=== PATIENT | female | born 1955 | race Caucasian/White ===

== ENCOUNTER → 2016-03-23 | Outpatient (CLI) | payer OTHER ==
--- NOTE | 2016-03-24 10:29 | US ---
EXAMINATION TYPE: US transvaginal DATE OF EXAM: 03/23/2016 4:30 PM COMPARISON: NONE CLINICAL HISTORY: R10.2 Pelvic pain. TECHNIQUE: Transvaginal (TV) Date of LMP: Post menapausal EXAM MEASUREMENTS: Uterus: 4.9 x 2.3 x 3.6 cm Endometrial Stripe: 0.3 cm Right Ovary: not visualized Left Ovary: 1.3 x 1.0 x 0.9cm TECHNOLOGIST IMPRESSION: wnl 1. Uterus: Anteverted 2. Endometrium: wnl 3. Right Ovary: not visualized, atrophy/peristalsing bowel 4. Left Ovary: small cystic structure measuring 0.7 x0.5 cm 5. Bilateral Adnexa: wnl 6. Posterior cul-de-sac: wnl IMPRESSION: 1. Minimal fluid within the endometrial canal.
== END | disposition home or self-care (01) ==
LOC: RADUSWWP 16:07
PROVIDERS: ATTEND Internal Medicine Geriatric Medicine
DX: N83.202 Unspecified ovarian cyst, left side (principal); N85.4 Malposition of uterus
CPT/HCPCS: 76830

== ENCOUNTER → 2020-02-22 | Outpatient (CLI) | payer BC, MEDICARE ==
--- NOTE | 2020-02-22 10:36 | BD ---
EXAMINATION TYPE: Axial Bone Density DATE OF EXAM: 02/22/2020 COMPARISON: NONE CLINICAL HISTORY: Height: 66 Weight: 166.0 FRAX RISK QUESTIONS: Alcohol (3 or more units per day): no Family History (Parent hip fracture): no Glucocorticoids (More than 3mos): no (Ex: prednisone, prednisolone, methylprednisolone, dexamethasone, and hydrocortisone). History of Fracture in Adulthood: no Secondary Osteoporosis: 1. Type 1 Diabetes: no 2. Hyperthyroidism: no 3. Menopause before 45: no 4. Malnutrition: no 5. Chronic liver disease: no Rheumatoid Arthritis: no Current Tobacco Use: yes RISK FACTORS HISTORY OF: Family History of Osteoporosis: yes Active: yes Diet low in dairy products/other sources of calcium: no Postmenopausal woman: age 53 Lost more than 2 inches in height since high school: no MEDICATIONS: none Additional History: EXAM MEASUREMENTS: Bone mineral densitometry was performed using the [employer] System. Bone mineral density as measured about the Lumbar spine is: ----- L1-L4(G/cm2): 1.000 T Score Values are as follows: ----- L2: -0.4 ----- L3: -1.9 ----- L4: -2.6 ----- L1-L4: -1.5 Bone mineral density : baseline Bone mineral density about the R hip (g/cm2): 0.754 Bone mineral density about the L hip (g/cm2): 0.777 T Score values are as follows: -----R Neck: -2.0 -----L Neck: -1.9 -----R Total: -1.9 -----L Total: -1.8 Bone mineral density : baseline IMPRESSION: Osteopenia NOTE: T-SCORE=SD OF THE YOUNG ADULT MEAN.
--- NOTE | 2020-02-23 12:34 | MM ---
Reason for exam: screening (asymptomatic). Last mammogram was performed 5 years and 2 months ago. History: Patient is postmenopausal. Excisional biopsy of the left breast. Physical Findings: A clinical breast exam by your physician is recommended on an annual basis and results should be correlated with mammographic findings. MG 3D Screening Mammo W/Cad Bilateral CC and MLO view(s) were taken. Prior study comparison: December 10, 2014, bilateral MG screening mammo w CAD. October 05, 2013, mammogram, performed at [facility]. There are scattered fibroglandular densities. There is no discrete abnormality. No significant changes when compared with prior studies. ASSESSMENT: Negative, BI-RAD 1 RECOMMENDATION: Routine screening mammogram of both breasts in 1 year.
== END | disposition home or self-care (01) ==
LOC: RADMAMWWP 07:49
PROVIDERS: ATTEND Internal Medicine Geriatric Medicine
DX: Z12.31 Encounter for screening mammogram for malignant neoplasm of breast (principal); M85.80 Other specified disorders of bone density and structure, unspecified site; M81.0 Age-related osteoporosis without current pathological fracture
CPT/HCPCS: 77063; 77067; 77080

== ENCOUNTER → 2021-06-26 | Outpatient (CLI) | payer MEDICARE ==
--- NOTE | 2021-06-26 15:36 | XR ---
EXAMINATION TYPE: XR thoracic spine complete DATE OF EXAM: 06/26/2021 COMPARISON: None HISTORY: Tarsalgia TECHNIQUE: 3 view thoracic spine FINDINGS: There are 12 thoracic type vertebral bodies. The pedicles are intact. There is some mild di ffuse disc space narrowing within the mid thoracic spine. Mild compression deformity may be present i n the region of T5 of indeterminate age. Findings are be further evaluated with thoracic CT. IMPRESSION: 1. Some mild endplate change may be present in the region of T5. Consider CT for additional evaluati on. Correlate with the location pain.
== END | disposition home or self-care (01) ==
LOC: CANPRECLI → RADXRMAIN 08:21
PROVIDERS: ATTEND Internal Medicine Geriatric Medicine
DX: M54.9 Dorsalgia, unspecified (principal)
CPT/HCPCS: 72072

== ENCOUNTER → 2021-07-06 | Outpatient (CLI) | payer MEDICARE ==
--- NOTE | 2021-07-06 08:15 | CT ---
EXAMINATION TYPE: CT thoracic spine wo con DATE OF EXAM: 07/06/2021 COMPARISON: Plain film 06/26/2021 HISTORY: Wedge compression fx thoracic vertebrae CT DLP: [address] of the thoracic spine was performed. Bone and soft tissue window settings were obtained . There is mild loss of height involving the T5 vertebral body at its superior endplate with small para spinal hematoma noted compatible with the recent compression fracture. No additional fractures are se en. There is moderate to severe multilevel degenerative disc space narrowing and spondylosis. Accentu ated upper thoracic kyphosis noted. No evidence of paraspinal mass. No bony destructive process. Ante rior spondylosis. IMPRESSION: 1. There is a recent superior endplate compression fracture of T5 with small paraspinal hematoma. No additional fracture seen.
== END | disposition home or self-care (01) ==
LOC: RADCTMAIN 07:11
PROVIDERS: ATTEND Internal Medicine Geriatric Medicine
DX: S22.058A Other fracture of T5-T6 vertebra, initial encounter for closed fracture (principal); X58.XXXA Exposure to other specified factors, initial encounter
CPT/HCPCS: 72128

== ENCOUNTER → 2022-08-29 | Outpatient (CLI) | payer MEDICARE ==
--- NOTE | 2022-08-29 09:02 | BD ---
EXAMINATION TYPE: Axial Bone Density DATE OF EXAM: 08/29/2022 CLINICAL HISTORY: 67 years old Female. ICD-10 CODE: M81.0AGE-RELATED OSTEOPOROSIS W/O CURRENT P Height: 63.4 Weight: 165 FRAX RISK QUESTIONS: Glucocorticoids (More than 3mos): yes (Ex: prednisone, prednisolone, methylprednisolone, dexamethasone, and hydrocortisone). Current Tobacco Use: yes RISK FACTORS HISTORY OF: Family History of Osteoporosis: mother, no fx Postmenopausal woman: yes, at 53 Hyperparathyroidism: no Adrenal Insufficiency: no MEDICATIONS: Prednisone or other steroids: yes, copd, and for illness, for about 10 yrs Additional Medications: Citalopram, xanax, cholesterol meds, vit d and calcium, Additional History: anxiety, cholesterol, EXAM MEASUREMENTS: Bone mineral densitometry was performed using the Hum System. Bone mineral density as measured about the Lumbar spine is: ----- L1-L4(G/cm2): 1.004 T Score Values are as follows: ----- L1: -0.6 ----- L2: -0.2 ----- L3: -1.6 ----- L4: -3.0 ----- L1-L4: -1.5 Z Score Values are as follows: ----- L1: 0.8 ----- L2: 1.2 ----- L3: -0.3 ----- L4: -1.6 ----- L1-L4: -0.1 Bone mineral density has: Increased 0.4% since study of: 02.22.2020 Bone mineral density about the R hip (g/cm2): 0.750 Bone mineral density about the L hip (g/cm2): 0.745 T Score values are as follows: -----R Neck: -2.4 -----L Neck: -2.4 -----R Total: -2.0 -----L Total: -2.1 Z Score values are as follows: -----R Neck: -1.0 -----L Neck: -1.0 -----R Total: -0.8 -----L Total: -0.9 Bone mineral density has: Decreased -3.2% since study of: 02.22.2020 FRAX%s: The graph provided illustrates a 24.0% chance for a major osteoporotic fx and a 9.9% chance f or the hips probability for fx in 10 years time. IMPRESSION: Osteopenia (T Score between -2.5 and -1). There is slightly increased risk of fracture and the patient may be considered for treatment. Re-Screen 2-5 years. NOTE: T-SCORE=SD OF THE YOUNG ADULT MEAN.
--- NOTE | 2022-08-29 09:08 | MM ---
Reason for Exam: Screening (asymptomatic). Last mammogram was performed 2 year(s) and 6 month(s) ago. Patient History: Menarche at age 10. First Full-Term at age 16. Postmenopausal. Patient has history of breast feeding. Excisional Biopsy on the Left side. Mother had ovarian cancer at or over age 50. Sister had breast cancer at or over age 50. Risk Values: Ro 5 year model risk: 3.8%. NCI Lifetime model risk: 11.3%. Prior Study Comparison: 11/27/1999 Bilateral Screening Mammogram, [facility]. 12/06/1999 Left Special View Mammogram, [facility]. 10/05/2013 Screening Mammogram, [facility]. 12/10/2014 Bilateral Screening Mammogram, [facility]. 02/22/2020 Bilateral Screening Mammogram, [facility]. Tissue Density: There are scattered fibroglandular densities. Findings: Analyzed By CAD. There is no suspicious group of microcalcifications or new suspicious mass in either breast. Overall Assessment: Negative, BI-RAD 1 Management: Screening Mammogram of both breasts in [address] [facility] will attempt to contact patient to return for supplemental views and ultrasound if indicated. Patient should continue monthly self-breast exams. A clinical breast exam by your physician is recommended on an annual basis. This exam should not preclude additional follow-up of suspicious palpable abnormalities. Note on Ro scores and lifetime risk: 1. A Ro score greater than 3% is considered moderate risk. If this is the case, consider specialist referral to assess eligibility for a risk reducing agent. 2. If overall lifetime risk for the development of breast cancer is 20% or higher, the patient may qualify for future screening with alternating mammogram and breast MRI. Electronically signed and approved by: Luis Rodgers DO
== END | disposition home or self-care (01) ==
LOC: RADMAMWWP 07:25
PROVIDERS: ATTEND Internal Medicine Geriatric Medicine
DX: Z12.31 Encounter for screening mammogram for malignant neoplasm of breast (principal); M81.0 Age-related osteoporosis without current pathological fracture; M85.89 Other specified disorders of bone density and structure, multiple sites; Z78.0 Asymptomatic menopausal state; Z80.3 Family history of malignant neoplasm of breast
CPT/HCPCS: 77063; 77067; 77080

== ENCOUNTER → 2023-07-02 | Outpatient (CLI) | payer MEDICARE ==
[2023-07-02 12:03] LABS: African American GFR (CKD) 86 (>60 ml/min/1.73 sqM); Blood Urea Nitrogen 10 mg/dL (7-17); Non-African American GFR(CKD) 74 (>60 ml/min/1.73 sqM)
--- NOTE | 2023-07-02 12:12 | XR ---
EXAMINATION TYPE: XR elbow complete LT DATE OF EXAM: 07/02/2023 12:01 PM CLINICAL INDICATION:Female, 68 years old with history of M25.522 pain in left elbow; PHH COMPARISON: None TECHNIQUE: XR elbow complete LT; elbow was examined in AP, lateral, and oblique projections. FINDINGS: No evidence of any acute osseous pathology, joint dislocation, or soft tissue swelling is n oted. No evidence of joint effusion is present. IMPRESSION: No evidence of acute fracture.
--- NOTE | 2023-07-02 13:27 | CT ---
EXAMINATION TYPE: CT abdomen pelvis w con CT DLP: 532.9 mGycm, Automated exposure control for dose reduction was used. DATE OF EXAM: 07/02/2023 1:11 PM COMPARISON: None CLINICAL INDICATION:Female, 68 years old with history of R10.9 ABDOMINAL PAIN; abdominal pain, bloati ng, diarrhea daily x5 months TECHNIQUE: Axial CT abdomen pelvis w con;Sagittal and coronal reformats were created on a separate w orkstation. Contrast used:100 mL of Isovue 300 with IV Contrast, (none if empty) Oral contrast used: with Oral Contrast (none if empty) FINDINGS: LOWER CHEST: Unremarkable ABDOMEN LIVER: Unremarkable GALLBLADDER AND BILE DUCTS: Unremarkable. PANCREAS: Unremarkable. SPLEEN: Unremarkable. ADRENAL GLANDS: Unremarkable. KIDNEYS AND URETERS: No evidence of hydronephrosis or renal calculus. The ureters are unremarkable. PELVIS BLADDER: Unremarkable REPRODUCTIVE: Unremarkable. ABDOMEN & PELVIS STOMACH AND BOWEL: No evidence of bowel obstruction. Oral contrast extends to the superior descending colon. No evidence for bowel wall thickening. The anterior descending colon and sigmoid colon and re ctum are nondistended. PERITONEUM/RETROPERITONEUM: No evidence of pneumoperitoneum or free fluid. VASCULATURE: Mild atherosclerotic calcifications are present throughout the abdominal aorta and its b ranches. No evidence of aortic aneurysm. MUSCULOSKELETAL: No acute osseous abnormalities. Mild disc degeneration changes are present throughou t the thoracolumbar spine. LYMPH NODES: No gross evidence for lymphadenopathy. SOFT TISSUE/ABDOMINAL WALL: Unremarkable IMPRESSION: No evidence for acute abdominal process. No evidence for bowel obstruction.
== END | disposition home or self-care (01) ==
LOC: RADCTMAIN 11:05
PROVIDERS: ATTEND Internal Medicine Geriatric Medicine
DX: R10.9 Unspecified abdominal pain (principal); M25.522 Pain in left elbow
CPT/HCPCS: 82565; 84520; 73080; 74177; 36415; Q9967

== ENCOUNTER → 2023-08-06 | Outpatient (CLI) | payer MEDICARE ==
--- NOTE | 2023-08-16 23:57 | XR ---
EXAMINATION TYPE: XR ribs 2 views LT, XR thoracic spine 3 views complete, XR lumbar spine 3V DATE OF EXAM: 08/06/2023 COMPARISON: CT chest 05/02/2022 HISTORY: 68-year-old female and 5 4.9, fall one year ago with fractured T-spine, follow-up in 2 weeks ago, left lower posterior rib pain. FINDINGS: Left RIBS: Age-indeterminate fracture left posterolateral sixth rib. No additional displaced left rib fracture i s seen. Thoracic spine: Osteopenia. 12 rib-bearing thoracic vertebral bodies. All pedicles are visualized. Anterior compressi on deformity of a midthoracic vertebral body, new from 05/02/2022. Mild to moderate degenerative disc d isease scattered throughout. Alignment is maintained. Lumbar spine: 5 lumbar type vertebral bodies. Osteopenia. Hypertrophic facet arthropathy throughout with straighten ing of the normal lumbar lordosis. Mild multilevel degenerative disc disease. Vertebral body heights are preserved. Minimal superior endplate deformity L2 vertebral body which has a chronic appearance o n the patient's 07/02/2023 CT. Vertebral body heights otherwise maintained. IMPRESSION: 1. Left RIBS: Age-indeterminate, possibly acute mildly displaced left posterolateral sixth rib fractu re. 2. Thoracic spine: Anterior compression deformity of a midthoracic vertebral body, new from 05/03/2023 but still age indeterminate. Clinically correlate. Approximately 40% anterior height loss. Mild to mo derate degenerative disc disease throughout the thoracic spine and accentuated mid thoracic kyphosis. 3. Lumbar spine: Old endplate deformity of L2. Straightening of the normal lumbar lordosis. Hypertrop hic facet arthropathy throughout with mild degenerative disc disease.
== END | disposition home or self-care (01) ==
LOC: RADXRMAIN 13:59
PROVIDERS: ATTEND Internal Medicine Geriatric Medicine
DX: M47.816 Spondylosis without myelopathy or radiculopathy, lumbar region (principal); M40.294 Other kyphosis, thoracic region; M51.35 Other intervertebral disc degeneration, thoracolumbar region; S23.41XA Sprain of ribs, initial encounter; M40.46 Postural lordosis, lumbar region; M43.8X6 Other specified deforming dorsopathies, lumbar region; W19.XXXA Unspecified fall, initial encounter
CPT/HCPCS: 72072; 72100

== ENCOUNTER → 2024-04-03 | Outpatient (CLI) | payer MEDICARE ==
--- NOTE | 2024-04-03 15:36 | CTL ---
EXAMINATION TYPE: CT Low Dose Lung DATE OF EXAM: 04/03/2024 12:19 PM COMPARISON: 05/02/2022 CLINICAL INDICATION: Female, 69 years old with history of Z12.2 ENCNTR SCREEN FO F17.210 NICOTINE DEP ENDENCE, Personal hx nicotine dependence, current smoker, 1 ppd x 46 years, c/o SOB, cough. TECHNIQUE: Low dose computed tomography scan was performed through the chest at 1 mm thick sections a nd reconstructed images in multiple planes at 1 mm and [address] DLP: 68.7 mGycm, CT CTDI: 2.1 mGy, Automated exposure control for dose reduction was used. CT DIAGNOSTIC QUALITY: Satisfactory FINDINGS: The heart is normal size without pericardial effusion. Aorta normal caliber with conventional vessel branching anatomy. Borderline caliber main right and left pulmonary arteries up to 2.5 cm may reflect underlying pulmona ry hypertension. Swbe-pf-xceyrqkh diffuse bronchial wall thickening. Biapical pleural-parenchymal scarring. Mild emphy sematous change. Strandy scarring or atelectasis at the lower lungs. The interval or multifocal patchy groundglass changes in the upper lungs. 4 mm right mid lung pulmonary nodule is unchanged. No suspicious greater than 4 mm pulmonary nodule i s identified. Visualized upper abdomen shows no gross abnormality. Bones: Accentuated upper to mid thoracic kyphosis. Mild anterior compression deformity T5 is unchange d. Moderate degenerative disc disease throughout the thoracic spine. IMPRESSION: 1. Lung RADS 2, benign. No new suspicious pulmonary nodules. 2. COPD with mild emphysema and interval development of multifocal patchy groundglass in the upper an d midlungs. Correlate for etiology such as hypersensitivity pneumonitis, LIAISON ENGINEER, or atypical/ COVID pneu monia. CT LUNG RAD AND CT CHEST RECOMMENDATION: Lung-Rad 2 Benign Appearance or Behavior: Continue annual sc reening with LDCT in 12 months. S Modifier (other clinically significant findings): S, further clinical management of the groundglass infiltrates mentioned above. [facility], , 04/03/2024 3:34 PM
== END | disposition home or self-care (01) ==
LOC: RADCTMAIN 11:44
PROVIDERS: ATTEND Internal Medicine Geriatric Medicine
DX: Z12.2 Encounter for screening for malignant neoplasm of respiratory organs (principal); J43.9 Emphysema, unspecified; J44.9 Chronic obstructive pulmonary disease, unspecified; F17.210 Nicotine dependence, cigarettes, uncomplicated; J67.9 Hypersensitivity pneumonitis due to unspecified organic dust
CPT/HCPCS: 71271

== ENCOUNTER → 2024-05-25 | Outpatient (CLI) | payer MEDICARE ==
[2024-05-25 10:54] VITALS: BP 116/63; PULSE 80; RESP 15; TEMP 96.9
--- NOTE | 2024-05-25 12:27 | XR ---
EXAMINATION TYPE: XR thoraco lumbar junction DATE OF EXAM: 05/25/2024 11:48 AM COMPARISON: 08/06/2023 CLINICAL INDICATION: Female, 69 years old with history of M54.14 RADICULOPATHY, THORACIC REGION; PHH, pain TECHNIQUE: XR thoraco lumbar junction - Frontal, lateral and coned in L5-S1 lateral views of the spin e. FINDINGS: No evidence of any acute osseous pathology. No evidence of loss of vertebral body height i s seen. There is normal alignment of the lumbar vertebral bodies. Scattered disc space narrowing. Mul tilevel marginal osteophyte formation throughout the visualized spine. There is facet joint arthropat hy throughout the spine. Scattered at least mild neural foraminal stenosis. IMPRESSION: 1. No acute fracture. 2. Moderate multilevel disc degeneration. [facility], , 05/25/2024 12:25 PM
--- NOTE | 2024-05-25 14:46 | P.PAINPG ---
PQRS Measure Charge Sheet Comment: HISTORY OF PRESENT ILLNESS: A 69 yr old female w at side as a referral from [facility] presents today w severe and chronic mid to lower back pain secondary to T3 compression fracture, radiculopathy, spondylosis and facet arthropathy without myelopathy for evaluation. Pt states pain level is provoked at 6 /10 in intensity, constant, localized in the mid and lower spine, predominantly axial, dull in character without shooting pain. Pain is provoked by bending, lifting. Pain is alleviated by heat, ice, medications, repositioning and rest . Oswestry axial pain score at 22. PMH: OA, Hyperlipidemia, MDD PSH: Hernia Repair SH: Daily tobacco use, Hx ETOH abuse (2023), Fall w +opiates, benzodiazepine, THC (04/28) FH: Son- OD, . All: See list Meds: See list incl Tylenol #3 #60, Robaxin, Neurontin. Urged pt to keep narcotic agreement in place and adhere to policy. REVIEW OF ORGAN SYSTEMS: CONSTITUTIONAL: No fevers or chills. No recent weight loss. NEUROLOGICAL: + numbness and tingling along the distal extremities. No seizure disorders or headaches. MUSCULOSKELETAL: + pain PSYCHIATRIC: Denies current depression or suicidal thoughts. Physical Examinations : Constitutional : Cooperative , not in acute distress . Neurologic : Cranial nerve II to XII intact. No focal neurological deficits. Psychiatric : alert & oriented x 3. Matching mood & appropriate affect. Judgment & insight intact. Musculoskeletal : Cervical Spine Motor strength in the deltoid and biceps: Normal right side. Normal Left side Motor strength biceps and the wrist extensors: Normal right side . Normal left side Motor strength in the triceps muscle: Normal right side. Normal left side Deep tendon reflexes: Normal at the biceps. Normal at Brachioradialis. Normal at triceps Vertebral body tenderness to deep palpation over Cervical facet loading test: positive bilaterally Spurling test: positive bilaterally Neck distraction test: positive bilaterally Bridger sign: positive bilaterally Lumbar spine Motor strength lower extremities ,thigh and legs 5/5 Right side , 5/5 Left side Deep tendon reflexes : Normal Knee Jerk. Normal Ankle Jerk Vertebral body tenderness over Delcid Test positive Lumbar facet Loading Test: positive Right / positive Left Range of motion of the lumbar spine Flexion 30 degrees, extension 10 degrees Straight Leg Raise test: Left/ Right positive at degrees Tyler test: positive right / positive left. Severe tenderness over the Sacroiliac joint on the Right / Left sides Gaenslen test: positive bilaterally Seated flexion test: positive bilaterally. Sacral spine : Severe tenderness over the Sacroiliac joint: right side / left side Range of motion: Flexion of the lumbar spine <60 degrees Range of motion: Extension of the lumbar spine <20 degrees Gaenslen's Test positive Tyler test: positive right side / left side Thigh Thrust Test Sacral Thrust Test Imaging: CT non contrast brain / cervical spine from 04/09/24 reviewed X ray thoracic spine from 08/06/23 reviewed Assessment/ Plan : T3 compression fracture, Lumbar radiculopathy Recommendation of PT x 6 wks, x ray thoracolumbar spine M54.14, M54.16. All questions answered. I have spent greater than 30 minutes on patient care today. Dr Barclay was available by phone for the evaluation of this patient. The time was used to re view the medical records including relevant urine studies and Prescription history (MAPs), review of the available imaging, evaluation and examination of the patient, coordination of care with the medical staff and if applicable referring physicians, as well as creation of the medical record Home Medications: Ambulatory Orders ALPRAZolam [Xanax] 0.25 mg PO DAILY PRN 04/10/24 ALPRAZolam [Xanax] 0.25 mg PO HS 04/10/24 Acetaminophen Tab [Tylenol] 650 mg PO Q6HR PRN tab 04/10/24 Albuterol Inhaler [Ventolin Hfa Inhaler] 2 puff INHALATION RT-Q6H PRN 04/10/24 Baclofen [Lioresal] 20 mg PO BID PRN 04/10/24 Citalopram Hydrobromide [CeleXA] 20 mg PO DAILY 04/10/24 Gabapentin [Neurontin] 100 mg PO BID PRN 04/10/24 HYDROcodone/APAP 5-325MG [Wallace 5-325] 1 tab PO Q8H PRN 04/10/24 Meloxicam [Mobic] 15 mg PO DAILY PRN 04/10/24 Rosuvastatin Calcium [Crestor] 5 mg PO DAILY 04/10/24 Ubidecarenone [Co Q-10] 400 mg PO DAILY 04/10/24 traZODone HCL [Desyrel] 50 mg PO HS 04/10/24 Controlled Substance Measures - Controlled Substance Measures Is patient prescribed a controlled substance at discharge?: No
== END ==
LOC: PNWHC3 10:02
PROVIDERS: ATTEND Specialist
DX: M48.54XA Collapsed vertebra, not elsewhere classified, thoracic region, initial encounter for fracture (principal); M51.16 Intervertebral disc disorders with radiculopathy, lumbar region; M54.9 Dorsalgia, unspecified
CPT/HCPCS: 72080; 99212

== ENCOUNTER → 2024-05-30 | Outpatient (CLI) | payer MEDICARE ==
--- NOTE | 2024-05-30 10:26 | MR ---
EXAMINATION TYPE: MR raven/lsmohini wo con DATE OF EXAM: 05/30/2024 10:10 AM COMPARISON: None. CLINICAL INDICATION: Female, 69 years old with history of M54.14 RADICULOPATHY, THORACIC REGION, M54. 16 RADI, Mid back pain, hx fracture. IV Contrast: cc (None if empty) TECHNIQUE: Multiplanar, multisequence imaging of the lumbar spine is performed without IV contrast. Findings: Thoracic spine MRI: There are mild nonacute compression fractures of T3 and T5. There is a small to moderate central disc protrusion at the T8-9 disc resulting in moderate mass effe ct on the ventral aspect of the thecal sac. It abuts the anterior aspect of the thoracic cord. There is no thoracic spinal stenosis. Thoracic cord is normal in size and signal intensity. The paraspinal soft tissues are unremarkable. MRI of lumbar spine: Lumbar vertebral segments are normal in alignment. There is a mild chronic compression fracture of L2 with no retropulsion. There is mild degenerative disease throughout the lumbar spine were there is mild loss of signal inte nsity and circumferential disc bulge. There is also mild disc space narrowing at the L4-5 and L5-S1 l evels. There are no lumbar disc herniations. There is moderate facet arthropathy at the L5-S1 level and mild facet arthropathy throughout the joyce alonzo of the lumbar spine. Secondary to mild thickening of ligamentum flavum and facet arthropathy as well as circumferential di sc bulge, there is mild spinal stenosis at the L2-3, L3-4, L4-5 and L5-S1 levels. There is mild to moderate neural foraminal stenosis at the L5-S1 level bilaterally, right greater juan carlos n left. IMPRESSION: 1. Mild chronic compression fractures of T3, T5 and L2. 2. Mild to moderate central disc protrusion of the T8-9 disc resulting in moderate mass effect on the ventral aspect thecal sac but no thoracic spinal stenosis or thoracic cord abnormality. 3. Mild multilevel degenerative disease in the lumbar spine without disc herniation. 4. Mild spinal stenosis at multiple levels of lumbar spine described above. 5. Moderate facet arthrop athy at the L5-S1 level and mild facet arthropathy throughout the remainder of the lumbar spine. 6. Mild to moderate neuroforaminal stenosis at the L5-S1 level bilaterally, right greater than left. [facility], , 05/30/2024 10:24 AM
== END | disposition home or self-care (01) ==
LOC: RADMRIMAIN 08:54
PROVIDERS: ATTEND Specialist
DX: M48.54XA Collapsed vertebra, not elsewhere classified, thoracic region, initial encounter for fracture (principal); M48.56XA Collapsed vertebra, not elsewhere classified, lumbar region, initial encounter for fracture; M48.061 Spinal stenosis, lumbar region without neurogenic claudication; M99.73 Connective tissue and disc stenosis of intervertebral foramina of lumbar region; M51.16 Intervertebral disc disorders with radiculopathy, lumbar region; M51.14 Intervertebral disc disorders with radiculopathy, thoracic region
CPT/HCPCS: 72146; 72148

== ENCOUNTER → 2024-06-09 | Outpatient (CLI) | payer MEDICARE ==
[2024-06-09 15:22] LABS: HCT 39.8 % (37.2-46.3); HGB 12.7 g/dL (12.0-15.0); MCH 33.7 pg (27.0-32.0); MCHC 31.9 g/dL (32.0-37.0); MCV 105.6 FL (80.0-97.0); Mean Platelet Volume 10.9 FL (9.5-12.2); NRBC Per 100 WBC 0 X 10*3/uL (0.00-0.01); Platelet Count 247 X 10*3/uL (140-440); RBC 3.77 X 10*6/uL (4.10-5.20); RDW 13.2 % (11.5-14.5); WBC 6.81 X 10*3/uL (4.50-10.00)
[2024-06-09 15:33] LABS: ALT 18 U/L (8-44); AST 20 U/L (13-35); Albumin 4.3 g/dL (3.8-4.9); Albumin/Globulin Ratio 1.65 Ratio (1.60-3.17); Alkaline Phosphatase 91 U/L (41-126); BUN/Creat Ratio 17.75 Ratio (12.00-20.00); Blood Urea Nitrogen 14.2 mg/dL (9.0-27.0); Calcium 9.7 mg/dL (8.7-10.3); Carbon Dioxide 27.2 mmol/L (21.6-31.8); Chloride 102 mmol/L (96-109); Globulin 2.6 g/dL (1.6-3.3); Glucose 88 mg/dL (70-110); Potassium 4.3 mmol/L (3.5-5.5); Sodium 138 mmol/L (135-145); Total Bilirubin <0.2 mg/dL (0.3-1.2); Total Protein 6.9 g/dL (6.2-8.2)
[2024-06-09 16:10] LABS: Basophils # (A) 0.06 X 10*3/uL (0.00-0.10); Basophils % (A) 0.9 %; Eosinophils # (A) 0.19 X 10*3/uL (0.04-0.35); Eosinophils % (A) 2.8 %; Lymphocytes # (A) 2.31 X 10*3/uL (0.90-5.00); Lymphocytes % (A) 33.9 %; Monocytes # (A) 0.51 X 10*3/uL (0.20-1.00); Monocytes % (A) 7.5 %; Neutrophils # (A) 3.73 X 10*3/uL (1.80-7.70); Neutrophils % (A) 54.8 %
== END | disposition home or self-care (01) ==
LOC: LABWHC1 10:42
PROVIDERS: ATTEND Internal Medicine Gastroenterology
DX: K58.0 Irritable bowel syndrome with diarrhea (principal)
CPT/HCPCS: 36415; 80053; 83516; 85025

== ENCOUNTER 2024-07-03 05:50 | Day surgery (SDC) | payer MEDICARE ==
[2024-07-02 11:40] VITALS: BMI 22.2
[2024-07-03 06:27] VITALS: TEMP 98.3
[2024-07-03] MEDS: LACTATED RINGERS 1,000 ML IV SCH (06:29)
[2024-07-03] MEDS: IV FLUID CONTINUATION 1,000 ML IV ONE (06:29)
[2024-07-03] MEDS: LIDOCAINE 1% (10MG/ML) FOR IV START INTRADERMA PRN (06:29)
[2024-07-03] MEDS ORDERED: PROPOFOL 10 MG/ML 20 ML VIAL IV ONE (06:59)
[2024-07-03] MEDS ORDERED: LIDOCAINE 1% INJ 10MG/ML (20 ML MDV) ONE (06:59)
--- NOTE | 2024-07-03 07:23 | P.PCN ---
Date of Procedure: 07/03/24 Procedure(s) Performed: Brief history: Patient is a pleasant 69-year-old white female scheduled for an elective upper endoscopy as well as colonoscopy as a part of evaluation of intermittent episodes of nausea vomiting and diarrhea for the last several years duration. Her symptoms lately have been progressively getting worse. She usually has 4-5 loose watery bowel movements daily. Complaining of diffuse lower abdominal pain. Recent CT of the abdomen pelvis was unremarkable. Procedure performed: Esophagogastroduodenoscopy with biopsy Colonoscopy with biopsy Preoperative diagnosis: Abdominal pain and chronic diarrhea/nausea vomiting Anesthesia: MAC Procedure: After informed consent was obtained from the patient was brought into the endoscopy unit and IV sedation was administered by anesthesia under continuous monitoring. Initially upper endoscopy was done. The Olympus GF 160 video endo scope was inserted inserted into the mouth and esophagus intubated without any difficulty and was gradually advanced into the stomach and duodenum and carefully examined. The bulb and second part of the duodenum appeared normal. Biopsies were done from the duodenum to rule out celiac disease. The scope was then withdrawn into the stomach adequately insufflated with air and upon careful examination the antrum had mild gastritis and biopsies were done from this area. Mucosa body, cardia and fundus appeared normal. The scope was then withdrawn into the esophagus. The GE junction was located at 40 cm to the incisors. It appeared regular with no erythema erosions or ulcerations. Rest of the esophagus appeared normal. Patient tolerated the procedure well. At this time the patient continued to remain sedation. Initial digital rectal examination was normal. Olympus CF 160 video colonoscope was then inserted into the rectum and gradually advanced to the cecum without any difficulty. Careful examination was performed as the scope was gradually being withdrawn. The prep was excellent. The cecum, ascending colon, transverse colon, descending colon, sigmoid colon and rectum appeared normal. Scattered sigmoid diverticulosis. Random biopsies were done from the ascending and descending colon to rule out microscopic/collagenous colitis. Retroflexion was performed in the rectum and no lesions were noted. Patient tolerated the procedure well. Impression: 1. Upper endoscopy revealed mild antral gastritis but no active esophagitis or peptic ulcer disease 2. Colonoscopy revealed scattered sigmoid diverticulosis but no evidence of colorectal neoplasia Recommendations: Findings of this examination were discussed with the patient as well as her family. She was advised to follow-up with the biopsy results. Follow-up in the office in 2 weeks. Recommended repeat screening colonoscopy in 10 years
[2024-07-03 07:44] VITALS: BP 144/81; PULSE 72; RESP 17
== END 2024-07-03 08:14 | disposition home or self-care (01) ==
LOC: ORWHC2ENDO 05:50
PROVIDERS: ATTEND Internal Medicine Gastroenterology
DX: K57.30 Diverticulosis of large intestine without perforation or abscess without bleeding (principal); K58.0 Irritable bowel syndrome with diarrhea; R11.2 Nausea with vomiting, unspecified
CPT/HCPCS: 45380; 43239; J2003; J2704; 88305

== ENCOUNTER → 2024-07-16 | Outpatient (CLI) | payer MEDICARE ==
[2024-07-16 13:30] VITALS: BP 159/75; PULSE 85; RESP 17
--- NOTE | 2024-07-16 16:02 | P.PAINPG ---
Objective - Vital Signs Vital signs: Vital Signs Temp Pulse 85 07/16/24 13:21 Resp 17 07/16/24 13:21 BP 159/75 07/16/24 13:21 Pulse Ox 100 07/16/24 13:21 FiO2 Intake & Output 07/15/24 07/16/24 07/16/24 18:59 06:59 18:59 Weight 63.503 kg PQRS Measure Charge Sheet Mode of Arrival: Ambulatory Comment: HISTORY OF PRESENT ILLNESS: A 69 yr old female presents today w severe and chronic mid to lower back pain secondary to T3 compression fracture, radiculopathy, spondylosis and facet arthropathy without myelopathy for evaluation. Pt states pain level is provoked at 6 /10 in intensity, constant, localized in the lower spine, predominantly axial, throbbing in character without shooting pain. Pain is provoked by bending, lifting. Pain is alleviated by heat, ice, medications, repositioning and rest . Oswestry axial pain score at 22. Interventional procedures include Medications include Hx ETOH abuse (2023), Fall w +opiates, benzodiazepine, THC (04/28). Tylenol #3 #60, Robaxin, Neurontin. Urged pt to keep narcotic agreement in place and adhere to policy. REVIEW OF ORGAN SYSTEMS: CONSTITUTIONAL: No fevers or chills. No recent weight loss. NEUROLOGICAL: + numbness and tingling along the distal extremities. No seizure disorders or headaches. MUSCULOSKELETAL: + pain PSYCHIATRIC: Denies current depression or suicidal thoughts. Physical Examinations : Constitutional : Cooperative , not in acute distress . Neurologic : Cranial nerve II to XII intact. No focal neurological deficits. Psychiatric : alert & oriented x 3. Matching mood & appropriate affect. Judgment & insight intact. Musculoskeletal : Cervical Spine Motor strength in the deltoid and biceps: Normal right side. Normal Left side Motor strength biceps and the wrist extensors: Normal right side . Normal left side Motor strength in the triceps muscle: Normal right side. Normal left side Deep tendon reflexes: Normal at the biceps. Normal at Brachioradialis. Normal at triceps Vertebral body tenderness to deep palpation over Cervical facet loading test: positive bilaterally Spurling test: positive bilaterally Neck distraction test: positive b ilaterally Bridger sign: positive bilaterally Lumbar spine Motor strength lower extremities ,thigh and legs 5/5 Right side , 5/5 Left side Deep tendon reflexes : Normal Knee Jerk. Normal Ankle Jerk Vertebral body tenderness over L3 Delcid Test positive BL L3-L4 Lumbar facet Loading Test: positive Right / positive Left Range of motion of the lumbar spine Flexion 30 degrees, extension 10 degrees Straight Leg Raise test: Left/ Right positive at degrees Tyler test: positive right / positive left. Severe tenderness over the Sacroiliac joint on the Right / Left sides Gaenslen test: positive bilaterally Seated flexion test: positive bilaterally. Sacral spine : Severe tenderness over the Sacroiliac joint: right side / left side Range of motion: Flexion of the lumbar spine <60 degrees Range of motion: Extension of the lumbar spine <20 degrees Gaenslen's Test positive Tyler test: positive right side / left side Thigh Thrust Test Sacral Thrust Test Imaging: CT non contrast brain / cervical spine from 04/09/24 reviewed 05/30/24 reviewed Assessment/ Plan : T3 compression fracture, T8-T9 radiculopathy L2-L5 stenosis Recommendation of GIFTY L3-L4 #1. If ineffective, would need an orthopedic surgery consult for spinal stenosis. Risks, benefits of procedure discussed and pt verbalized understanding. All questions answered. I have spent greater than 30 minutes on patient care today. Dr Barclay was available by phone for the evaluation of this patient. The time was used to review the medical records including relevant urine studies and Prescription history (MAPs), review of the available imaging, evaluation and examination of the patient, coordination of care with the medical staff and if applicable referring physicians, as well as creation of the medical record - Pain Location Back Non-Pharmacological Interventions: Heat, Ice Pharmacological Interventions: Medication, Topical Medication PQRS Narrative: Blood Pressure 159/75 Pain Intensity [Back] 6 Scale Used Numeric (1 - 10) Hx Alcohol Use (MH) Yes Home Medications: Ambulatory Orders Albuterol Inhaler [Ventolin Hfa Inhaler] 2 puff INHALATION RT-Q6H PRN 04/10/24 Baclofen [Lioresal] 20 mg PO Q8H 04/10/24 Gabapentin [Neurontin] 100 mg PO Q8H 04/10/24 traZODone HCL [Desyrel] 50 mg PO HS 04/10/24 Boswellia Sha Extract [Boswellia] 307 mg PO DAILY 07/02/24 Cholecalciferol (Vitamin D3) [Vitamin D3 (50 Mcg = 2000 Iu)] 50 mcg PO DAILY 07/02/24 Dicyclomine [Bentyl] 10 mg PO TID PRN 07/02/24 Ibuprofen [Advil] 200 mg PO Q8HR 07/02/24 L.acidoph,Paracasei, B.lactis [Probiotic] 1 each PO DAILY 07/02/24 Multivitamins, Thera [Multivitamin (formulary)] 1 tab PO DAILY 07/02/24 Turmeric (Unknown Dose) 1 tab PO DAILY 07/02/24 cod liver oiL [Cod Liver Oil] 1 each PO DAILY 07/02/24 diphenhydrAMINE HCL [Benadryl Allergy] 12.5 mg PO BID 07/02/24 Acetaminophen-Codeine 300-30mg [Tylenol w/codeine #3] 1 tab PO Q8HR PRN 07/03/24 Controlled Substance Measures - Controlled Substance Measures Is patient prescribed a controlled substance at discharge?: No
== END ==
LOC: PNWHC3 13:11
PROVIDERS: ATTEND Specialist
DX: M47.24 Other spondylosis with radiculopathy, thoracic region (principal); M48.54XA Collapsed vertebra, not elsewhere classified, thoracic region, initial encounter for fracture; M48.061 Spinal stenosis, lumbar region without neurogenic claudication; F12.90 Cannabis use, unspecified, uncomplicated
CPT/HCPCS: 99212

== ENCOUNTER 2024-08-11 11:32 | Day surgery (SDC) | payer MEDICARE ==
[~2024-08-11 11:32] MED LIST: LACTATED RINGERS 1,000 ML IV SCH
[2024-08-11 12:19] VITALS: RESP 16; TEMP 98.4
[2024-08-11] MEDS ORDERED: methylPREDNISolone ACETATE 80 MG/ML 1 ML VIAL ONE (13:45)
[2024-08-11] MEDS ORDERED: IOPAMIDOL M300 15ML VIAL ONE (13:45)
--- NOTE | 2024-08-11 14:11 | FL ---
EXAMINATION TYPE: FL guided pain mgmt statistic Intraoperative/procedural fluoroscopic services were provided. CLINICAL INDICATION:Female, 69 years old with history of Pain; , [facility] FINDINGS: Fluoroscopic images for lumbar epidural steroid injection. No radiographic evidence for complication. Total fluoroscopy time is 18.8 seconds. DAP: [id number] mGym2 Please see the operative/procedural note for further details. [facility], , 08/11/2024 2:08 PM
[2024-08-11 14:22] VITALS: BP 138/85; PULSE 64
--- NOTE | 2024-08-11 14:53 | P.PCN ---
Description of Procedure: PREOPERATIVE DIAGNOSIS: 1- Lumbar Degenerative Disc Diseases 2-Lumbar spondylosis with Facet arthropathy without myelopathy. 3-lumbar spinal stenosis POSTOPERATIVE DIAGNOSIS: 1-lumbar degenerative disc disease. 2-lumbar spondylosis with facet arthropathy without myelopathy. 3-lumbar spinal stenosis. PROCEDURE Injection of radio contrast material into L3-4 interspace, interpretation of epidurogram, injection of steroid at L3-4 epidural space under fluoroscopic guidance. ANESTHESIA: Lidocaine 1% subcutaneously. In OR continuous pulse ox, EKG, blood pressure and verbal communication was maintained with the patient. EBL: Minimal PROCEDURE INDICATION: Before the procedure were discussed with the patient detailed procedure, alternatives, complications including infection, bleeding, nerve damage, paralysis all of which could be permanent. Patient understands and all questions were answered. PROCEDURE DESCRIPTION : After getting consent, patient in OR in prone position. Back was prepped with chlorhexidine and draped in sterile fashion. After injecting 10 mL of 1% lidocaine subcutaneously, a 20-gauge Tuohy needle was introduced at L3-4 interspace with loss of resistance technique using a syringe filled with air. Negative CSF, negative blood, negative paresthesia. Needle position was confirmed with AP and lateral view of the fluoroscope. After repeat negative aspiration 2 mL of Omnipaque 200 water soluble contrast was injected. Contrast was noted in the epidural space. No contrast was noted into intrathecal or intravascular space. After repeat negative aspiration 6 mL solution was injected intermittently which consists of 5 mL of preservative-free normal saline mixed with 1 mL of 80 mg Depo-Medrol. Needle was withdrawn intact. Skin was cleansed and Band-Aids was applied. DISPOSITION / PLANS: The patient tolerated the procedure well. No complication. The patient was placed in a supine position and transferred to the recovery area in a stable condition for observation. There was no evidence of lower extremity motor or sensory deficit after the procedure. Patient was discharged from the recovery room after meeting discharge criteria. Home discharge instructions were given to the patient by the staff. The patient was reexamined prior to discharge. The patient will schedule a follow up in the clinic in 2-4 weeks.
== END 2024-08-11 14:33 | disposition home or self-care (01) ==
LOC: ORPAIN 11:32
PROVIDERS: ATTEND Pain Medicine Interventional Pain Medicine
DX: M48.061 Spinal stenosis, lumbar region without neurogenic claudication (principal); M47.816 Spondylosis without myelopathy or radiculopathy, lumbar region; M51.369 Other intervertebral disc degeneration, lumbar region without mention of lumbar back pain or lower extremity pain; Z79.899 Other long term (current) drug therapy
CPT/HCPCS: 62323; Q9967; J1010

== ENCOUNTER → 2024-09-23 | Outpatient (CLI) | payer MEDICARE ==
[2024-09-23 12:26] VITALS: BP 125/80; PULSE 65; RESP 18
--- NOTE | 2024-09-23 15:58 | P.PAINPG ---
Objective - Vital Signs Vital signs: Intake & Output 09/22/24 09/23/24 09/23/24 18:59 06:59 18:59 Weight 63.049 kg PQRS Measure Charge Sheet Comment: HISTORY OF PRESENT ILLNESS: A 69 yr old female w at side presents today w severe and chronic mid to lower back pain secondary to T3 compression fracture, radiculopathy, spondylosis and facet arthropathy without myelopathy for evaluation s/p GIFTY L3-L4 #1. Pt states she experienced 0 % pain relief x 6 wks s/p procedure. Pt states pain level is provoked at 6 /10 in intensity, constant, localized in the lower spine, predominantly axial, throbbing in character without shooting pain. Pain is provoked by bending, lifting. Pain is alleviated by heat, ice, medications, repositioning and rest . Oswestry axial pain score at 22. Interventional procedures include GIFTY L3-L4 x1 Medications include Hx ETOH abuse (2023), Fall w +opiates, benzodiazepine, THC (04/28). Tylenol #3 #60, Robaxin, Neurontin. Urged pt to keep narcotic agreement in place and adhere to policy. REVIEW OF ORGAN SYSTEMS: CONSTITUTIONAL: No fevers or chills. No recent weight loss. NEUROLOGICAL: + numbness and tingling along the distal extremities. No seizure disorders or headaches. MUSCULOSKELETAL: + pain PSYCHIATRIC: Denies current depression or suicidal thoughts. Physical Examinations : Constitutional : Cooperative , not in acute distress . Neurologic : Cranial nerve II to XII intact. No focal neurological deficits. Psychiatric : alert & oriented x 3. Matching mood & appropriate affect. Judgment & insight intact. Musculoskeletal : Cervical Spine Motor strength in the deltoid and biceps: Normal right side. Normal Left side Motor strength biceps and the wrist extensors: Normal right side . Normal left side Motor strength in the triceps muscle: Normal right side. Normal left side Deep tendon reflexes: Normal at the biceps. Normal at Brachioradialis. Normal at triceps Vertebral body tenderness to deep palpation over Cervical facet loading test: positive bilaterally Spurling test: positive bilaterally Neck distraction test: positive bilaterally Bridger sign: positive bilaterally Lumbar spine Motor strength lower extremities ,thigh and legs 5/5 Right side , 5/5 Left side Deep tendon reflexes : Normal Knee Jerk. Normal Ankle Jerk Vertebral body tenderness over L3 Delcid Test positive BL L3-L4 Lumbar facet Loading Test: positive Right / positive Left Range of motion of the lumbar spine Flexion 30 degrees, extension 10 degrees Straight Leg Raise test: Left/ Right positive at degrees Tyler test: positive right / positive left. Severe tenderness over the Sacroiliac joint on the Right / Left sides Gaenslen test: positive bilaterally Seated flexion test: positive bilaterally. Sacral spine : Severe tenderness over the Sacroiliac joint: right side / left side Range of motion: Flexion of the lumbar spine <60 degrees Range of motion: Extension of the lumbar spine <20 degrees Gaenslen's Test positive Tyler test: positive right side / left side Thigh Thrust Test Sacral Thrust Test Imaging: CT non contrast brain / cervical spine from 04/09/24 reviewed 05/30/24 reviewed Assessment/ Plan : T3 compression fracture, T8-T9 radiculopathy L2-L5 stenosis Recommendation of follow up w Dr Anderson to explore additional treatment options. Pt also has 2 recorded no- show appointments and will no longer be a patient at this clinic. She is advised to keep all other physiican-patient agreements in place. All questions answered. I have spent greater than 30 minutes on patient care today. Dr Barclay was available by phone for the evaluation of this patient. The time was used to review the medical records including relevant urine studies and Prescription history (MAPs), review of the available imaging, evaluation and examination of the patient, coordination of care with the medical staff and if applicable referring physicians, as well as creation of the medical record PQRS Narrative: Hx Alcohol Use (MH) Yes Home Medications: Ambulatory Orders Albuterol Inhaler [Ventolin Hfa Inhaler] 2 puff INHALATION RT-Q6H PRN 04/10/24 Baclofen [Lioresal] 20 mg PO Q8H PRN 04/10/24 Gabapentin [Neurontin] 100 mg PO Q8H 04/10/24 traZODone HCL [Desyrel] 50 mg PO HS 04/10/24 Boswellia Sha Extract [Boswellia] 307 mg PO DAILY 07/02/24 Cholecalciferol (Vitamin D3) [Vitamin D3 (50 Mcg = 2000 Iu)] 50 mcg PO DAILY 07/02/24 Dicyclomine [Bentyl] 10 mg PO TID PRN 07/02/24 Ibuprofen [Advil] 200 mg PO Q8HR 07/02/24 L.acidoph,Paracasei, B.lactis [Probiotic] 1 each PO DAILY 07/02/24 Multivitamins, Thera [Multivitamin (formulary)] 1 tab PO DAILY 07/02/24 Turmeric (Unknown Dose) 1 tab PO DAILY 07/02/24 cod liver oiL [Cod Liver Oil] 1 each PO DAILY 07/02/24 diphenhydrAMINE HCL [Benadryl Allergy] 12.5 mg PO BID 07/02/24 Acetaminophen-Codeine 300-30mg [Tylenol w/codeine #3] 1 tab PO Q8HR PRN 07/03/24 diazePAM [Valium] 10 mg PO DAILY 1 Days #1 tab 08/10/24 Controlled Substance Measures - Controlled Substance Measures Is patient prescribed a controlled substance at discharge?: No
== END ==
LOC: PNWHC3 11:52
PROVIDERS: ATTEND Specialist
DX: M48.54XA Collapsed vertebra, not elsewhere classified, thoracic region, initial encounter for fracture (principal); M47.27 Other spondylosis with radiculopathy, lumbosacral region; M48.061 Spinal stenosis, lumbar region without neurogenic claudication; F12.90 Cannabis use, unspecified, uncomplicated
CPT/HCPCS: 99212